=== PATIENT | female | born 1960 | race Caucasian/White ===

== ENCOUNTER 2018-02-11 10:03 | Emergency (ER) | payer MEDICAID ==
[~2018-02-11] VITALS: Ht 167.6 cm; Wt 60.5 kg
[~2018-02-11 10:03] MED LIST: ALBU18HF2 INH; HYDR-569 PO
[2018-02-11 10:35] VITALS: BP 165/82
== END 2018-02-11 13:53 | disposition home or self-care (01) ==
LOC: ER 10:03
DX: S96.911A Strain of unspecified muscle and tendon at ankle and foot level, right foot, initial encounter (principal); I10 Essential (primary) hypertension; E03.9 Hypothyroidism, unspecified; F17.200 Nicotine dependence, unspecified, uncomplicated; F15.10 Other stimulant abuse, uncomplicated; W17.89XA Other fall from one level to another, initial encounter; Y93.89 Activity, other specified; Y92.89 Other specified places as the place of occurrence of the external cause; Y99.8 Other external cause status
CPT/HCPCS: 73600; 73630; 99284; L4360

== ENCOUNTER 2018-04-22 10:54 | Emergency (ER) | payer OTHER, MEDICARE, MEDICAID ==
[~2018-04-22] VITALS: Ht 167.6 cm; Wt 58.2 kg
[2018-04-22 12:49] LABS: BASOPHILS % (AUTO) 0.3 % (0-1); EOSINOPHILS # (AUTO) 0.1 X10'3 (0-0.9); EOSINOPHILS % (AUTO) 1.4 % (0-6); HEMATOCRIT 40.8 % (35.0-45.0); HEMOGLOBIN 14.1 g/dl (12.0-16.0); LYMPHOCYTES # (AUTO) 1.9 X10'3 (1.1-4.8); LYMPHOCYTES % (AUTO) 30.4 % (21-51); MEAN CORPUSCULAR HEMOGLOBIN 32.9 PG (27.0-31.0); MEAN CORPUSCULAR HGB CONC 34.7 % (33.0-36.5); MEAN CORPUSCULAR VOLUME 94.8 FL (78-98); MEAN PLATELET VOLUME 9.6 FL (7.4-10.4); MONOCYTES # (AUTO) 0.4 X10'3 (0-0.9); MONOCYTES % (AUTO) 6.1 % (2-12); NEUTROPHILS # (AUTO) 3.9 X10'3 (1.8-7.7); NEUTROPHILS % (AUTO) 61.8 % (42-75); PLATELET COUNT 199 X10'3 (140-440); RED CELL DISTRIBUTION WIDTH 13.8 % (11.5-14.5); WHITE BLOOD COUNT 6.4 X10'3 (4.5-11.0)
[2018-04-22 13:05] LABS: ALANINE AMINOTRANSFERASE 24 U/L (12-78); ALBUMIN 4.2 G/DL (3.4-5.0); ALBUMIN/GLOBULIN RATIO 1.3 (1.1-1.5); ALKALINE PHOSPHATASE 70 IU/L (46-116); ANION GAP 3 (8-16); ASPARTATE AMINO TRANSFERASE 17 U/L (10-37); BILIRUBIN,TOTAL 0.3 MG/DL (0.1-1.0); BLOOD UREA NITROGEN 15 MG/DL (7-18); CALCIUM 9.6 MG/DL (8.5-10.1); CHLORIDE 104 MMOL/L (99-107); GLUCOSE 114 MG/DL (70-104); POTASSIUM 3.9 MMOL/L (3.5-5.1); SODIUM 140 MMOL/L (135-145); TOTAL CARBON DIOXIDE 32.8 MMOL/L (24-32); TOTAL PROTEIN 7.5 G/DL (6.4-8.2)
[2018-04-22 13:15] LABS: BUN/CREATININE RATIO 14.6 (6.6-38.0); CREATININE 1.03 MG/DL (0.40-0.90); eGFR 55 ML/MIN
[2018-04-22] MEDS ORDERED: iohexol 300mg/ml 100ml inj. ONE (13:17)
[2018-04-22] MEDS ORDERED: HYDROcodone/acetaminophen 10/325mg tab PO ONE (14:50)
[2018-04-22] MEDS ORDERED: ibuprofen 200mg tablet PO ONE (14:50)
[2018-04-22 15:03] VITALS: BP 176/104
[2018-04-22] MEDS ORDERED: HYDR-565 PO (15:14)
[2018-04-22] MEDS ORDERED: mag hydrox/Alum hydrox/simeth 30ml oral suspension PO ONE (15:15)
[2018-04-22] MEDS ORDERED: LIDOcaine Viscous 15ml cup PO ONE (15:15)
== END 2018-04-22 15:25 | disposition home or self-care (01) ==
LOC: ER 10:54
DX: S09.90XA Unspecified injury of head, initial encounter (principal); S19.9XXA Unspecified injury of neck, initial encounter; K21.9 Gastro-esophageal reflux disease without esophagitis; I10 Essential (primary) hypertension; E03.9 Hypothyroidism, unspecified; F15.90 Other stimulant use, unspecified, uncomplicated; F17.200 Nicotine dependence, unspecified, uncomplicated; Z88.8 Allergy status to other drugs, medicaments and biological substances; Z88.0 Allergy status to penicillin; Z88.6 Allergy status to analgesic agent; Z90.710 Acquired absence of both cervix and uterus; Z98.890 Other specified postprocedural states; V49.9XXA Car occupant (driver) (passenger) injured in unspecified traffic accident, initial encounter; Y93.89 Activity, other specified; Y92.89 Other specified places as the place of occurrence of the external cause; Y99.8 Other external cause status
CPT/HCPCS: 36415; 70491; 80053; 85025; 99285; J7030; Q9967

== ENCOUNTER 2018-12-31 11:38 | Emergency (ER) | payer MEDICAID, MEDICARE ==
[~2018-12-31] VITALS: Ht 167.6 cm; Wt 61.4 kg
[~2018-12-31 11:38] MED LIST changes: +HYDR-4383 PO; -HYDR-569 PO
--- NOTE | 2018-12-31 13:04 | NUR ---
CALLED MOTHER WHEN WE COULD NOT FIND THE PT. MOTHER STATES SHE SMOKES AND COULD BE OUT SIDE. WE FOUND HER FATHER IN THE WAITING ROOM WHO STATED SHE WAS IN X-RAY . X-RAY STATED THEY DID NOT HAVE THE PT. ANY MORE. RADIOLOGIST LOOKED AT THE FILM THAT WAS TAKEN WHILE IN THE WAITING ROOM, AND STATED HE SEES A SMALL PNEUOMOTHORAX. STILL LOOKING FOR THE PT.
[2018-12-31] MEDS ORDERED: morphine 4 MG/ML inj SYRINge IV ONE ×2 (13:15→15:15)
[2018-12-31] MEDS ORDERED: normal saline 1000ML IV soln IVB ONE (13:15)
[2018-12-31] MEDS ORDERED: ondansetron/PF 4mg/2ml inj IV ONE (13:15)
[2018-12-31 14:12] LABS: BASOPHILS % (AUTO) 0.2 % (0-1); EOSINOPHILS % (AUTO) 0.3 % (0-6); HEMATOCRIT 36.7 % (35.0-45.0); HEMOGLOBIN 12.5 g/dl (12.0-16.0); LYMPHOCYTES % (AUTO) 13.8 % (21-51); MEAN CORPUSCULAR HEMOGLOBIN 32.1 PG (27.0-31.0); MEAN CORPUSCULAR HGB CONC 33.9 g/dL (33.0-36.5); MEAN CORPUSCULAR VOLUME 94.7 FL (78-98); MEAN PLATELET VOLUME 9.5 FL (7.4-10.4); MONOCYTES # (AUTO) 0.7 X10'3 (0-0.9); MONOCYTES % (AUTO) 9.2 % (2-12); NEUTROPHILS # (AUTO) 5.5 X10'3 (1.8-7.7); NEUTROPHILS % (AUTO) 76.5 % (42-75); PLATELET COUNT 142 X10'3 (140-440); RED BLOOD COUNT 3.88 X10'6 (4.20-5.60); WHITE BLOOD COUNT 7.1 X10'3 (4.5-11.0)
[2018-12-31 14:25] LABS: PARTIAL THROMBOPLASTIN TIME 32 SECONDS (22-32)
[2018-12-31] MEDS ORDERED: iohexol 300 MG/1 ML 50ml polymer ONE ×2 (14:25)
[2018-12-31 14:26] LABS: ALANINE AMINOTRANSFERASE 17 U/L (12-78); ALBUMIN 3.5 G/DL (3.4-5.0); ALBUMIN/GLOBULIN RATIO 1.1 (1.1-1.5); ALKALINE PHOSPHATASE 67 IU/L (46-116); ANION GAP 9 (8-16); ASPARTATE AMINO TRANSFERASE 15 U/L (10-37); BILIRUBIN,TOTAL 0.4 MG/DL (0.1-1.0); BLOOD UREA NITROGEN 13 MG/DL (7-18); BUN/CREATININE RATIO 20.3 (6.6-38.0); CALCIUM 8.6 MG/DL (8.5-10.1); CHLORIDE 103 MMOL/L (99-107); CREATININE 0.64 MG/DL (0.40-0.90); GLUCOSE 113 MG/DL (70-104); POTASSIUM 3.3 MMOL/L (3.5-5.1); SODIUM 137 MMOL/L (135-145); TOTAL CARBON DIOXIDE 24.9 MMOL/L (24-32); TOTAL PROTEIN 6.6 G/DL (6.4-8.2); eGFR > 90 ML/MIN
[2018-12-31] MEDS ORDERED: OXYC-145 PO (16:51)
[2018-12-31 17:05] VITALS: BP 162/82
== END 2018-12-31 17:06 | disposition home or self-care (01) ==
LOC: ER 11:38
DX: S22.42XA Multiple fractures of ribs, left side, initial encounter for closed fracture (principal); J93.9 Pneumothorax, unspecified; J94.2 Hemothorax; I10 Essential (primary) hypertension; K21.9 Gastro-esophageal reflux disease without esophagitis; E03.9 Hypothyroidism, unspecified; F17.200 Nicotine dependence, unspecified, uncomplicated; F15.90 Other stimulant use, unspecified, uncomplicated; Z90.49 Acquired absence of other specified parts of digestive tract; Z90.710 Acquired absence of both cervix and uterus; Z98.890 Other specified postprocedural states; Z88.0 Allergy status to penicillin; Z88.8 Allergy status to other drugs, medicaments and biological substances; Z79.899 Other long term (current) drug therapy; W01.0XXA Fall on same level from slipping, tripping and stumbling without subsequent striking against object, initial encounter; Y93.89 Activity, other specified; Y92.89 Other specified places as the place of occurrence of the external cause; Y99.8 Other external cause status
CPT/HCPCS: 36415; 71046; 71260; 74176; 80053; 85025; 85610; 85730; 96374; 96375; 96376; 99284; J2270; J2405; Q9967; J7030

== ENCOUNTER 2019-01-13 09:40 | Emergency (ER) | payer MEDICARE ==
[~2019-01-13] VITALS: Ht 167.6 cm; Wt 63.2 kg
[~2019-01-13 09:40] MED LIST changes: +OXYC-145 PO
--- NOTE | 2019-01-13 12:05 | NUR ---
PATIENT INFORMED THAT SHE WILL NEED ADMISSION FOR FURTHER TREATMENT OF FX RIBS. PATIENT FULLY DRESSED AND REQUESTING TO GO OUTSIDE AND SMOKE A CIGARETTE. STATES SHE WOULD RATHER GO HOME AND RETURN FOR ADMISSION. PATIENT SPEAKING WITH ER MD ABOUT PLANS, STATING SHE NEEDS TO RETURN HER MOM'S CAR AND THEN COME BACK. PATIENT ASKED FOR PAIN MED PRESCRIPTION AND WAS INFORMED BY ER MD THAT PATIENT WILL BE ABLE TO GET PAIN MEDS ON HER RETURN TO ER.
--- NOTE | 2019-01-13 12:10 | NUR ---
XR TECH AT THE BEDSIDE. PATIENT GETTING DRESSED FOR DC. REFUSED XRAY EXAM AND BRISKLY WALKED OUT OF ROOM, STATING THAT SHE IS LEAVING AND HAS BEEN TREATED POORLY. STEADY GAIT WITH BRISK WALKING AND NO SIGNS OF DIFFICULTY MOVING OR BREATHING. DEPARTED FROM ER PRIOR TO SIGNING DC PAPERWORK, IN STABLE CONDITION.
[2019-01-13 12:32] VITALS: BP 119/71
[2019-01-14] MEDS ORDERED: ESCI20TA38 PO (11:07)
[2019-01-14] MEDS ORDERED: LEVO175T2 PO (11:07)
[2019-01-14] MEDS ORDERED: VALS160T30 PO (11:07)
[2019-01-14] MEDS ORDERED: RISP1TAB3 PO (11:07)
== END 2019-01-13 12:36 | disposition home or self-care (01) ==
LOC: ER 09:40
DX: J90 Pleural effusion, not elsewhere classified (principal); I10 Essential (primary) hypertension; K21.9 Gastro-esophageal reflux disease without esophagitis; F17.200 Nicotine dependence, unspecified, uncomplicated; F15.90 Other stimulant use, unspecified, uncomplicated; E03.9 Hypothyroidism, unspecified; Z90.710 Acquired absence of both cervix and uterus; Z88.0 Allergy status to penicillin; Z88.8 Allergy status to other drugs, medicaments and biological substances
CPT/HCPCS: 71046; 99283

== ENCOUNTER 2024-08-19 12:17 | Inpatient (IN) | payer MEDICARE, MEDICAID ==
[~2024-08-19] VITALS: Ht 167.6 cm; Wt 72.0 kg
[~2024-08-19 12:17] MED LIST changes: -ALBU18HF2 INH; +ESCI20TA39 PO; -HYDR-4383 PO; +LACT1CAP26 PO; +LEVO100T9 PO; +LEVO750T68 PO; +RISP-31 PO; +SYN0.088T PO; +VALS160T30 PO
[2024-08-19] MEDS: LORazepam 2 mg/ml vial IV ONE (13:22)
[2024-08-19 13:29] LABS: BASOPHILS % (AUTO) 0.2 % (0-1); EOSINOPHILS % (AUTO) 0 % (0-6); HEMOGLOBIN 13.7 g/dl (12.0-16.0); LYMPHOCYTES # (AUTO) 1.3 X10'3 (1.1-4.8); LYMPHOCYTES % (AUTO) 12.7 % (21-51); MEAN CORPUSCULAR HEMOGLOBIN 37.2 PG (27.0-31.0); MEAN CORPUSCULAR VOLUME 106.1 FL (78-98); MEAN PLATELET VOLUME 10.6 FL (7.4-10.4); MONOCYTES # (AUTO) 1.2 X10'3 (0-0.9); MONOCYTES % (AUTO) 11.8 % (2-12); NEUTROPHILS # (AUTO) 7.4 X10'3 (1.8-7.7); NEUTROPHILS % (AUTO) 75.3 % (42-75); PLATELET COUNT 85 X10'3 (140-440); RED BLOOD COUNT 3.67 X10'6 (4.20-5.60); RED CELL DISTRIBUTION WIDTH 13.7 % (11.5-14.5); WHITE BLOOD COUNT 9.9 X10'3 (4.5-11.0)
[2024-08-19 13:51] LABS: APTT 25 SECONDS (22-32); PROTHROMBIN TIME 10.1 SECONDS (9.0-12.0)
[2024-08-19 13:54] LABS: ALANINE AMINOTRANSFERASE 154 U/L (12-78); ALBUMIN 2.7 G/DL (3.4-5.0); ALBUMIN/GLOBULIN RATIO 0.8 (1.1-1.5); ALKALINE PHOSPHATASE 76 IU/L (46-116); ANION GAP 16 (8-16); ASPARTATE AMINO TRANSFERASE 312 U/L (10-37); BILIRUBIN,TOTAL 1.9 MG/DL (0.1-1.0); BLOOD UREA NITROGEN 39 MG/DL (7-18); BUN/CREATININE RATIO 39.4 (10.0-20.0); CALCIUM 7.9 MG/DL (8.5-10.1); CHLORIDE 96 MMOL/L (99-107); CREATININE 0.99 MG/DL (0.40-0.90); GLUCOSE 86 MG/DL (70-104); SODIUM 131 MMOL/L (135-145); TOTAL CARBON DIOXIDE 19.3 MMOL/L (24-32); TOTAL PROTEIN 5.9 G/DL (6.4-8.2); eCRCL 54 ML/MIN; eGFR 57 ML/MIN
[2024-08-19 13:56] LABS: PLATELET ESTIMATE DECREASED
[2024-08-19 13:57] LABS: LARGE PLATELETS FEW
[2024-08-19 14:29] LABS: ETHANOL < 10 MG/DL (<10)
[2024-08-19] MEDS: normal saline 1000ml 1,000 ML IVB ONE ×2 (16:43→16:44)
[2024-08-19 16:47] LABS: BILIRUBIN,URINE MODERATE (Neg); CLARITY,URINE CLOUDY (Clear); GLUCOSE, URINE NEGATIVE (Neg); KETONES,URINE 15 mg/dl (Neg); LEUKOCYTE ESTERASE ,URINE NEGATIVE (Neg); NITRITES, URINE POSITIVE (Neg); OCCULT BLOOD,URINE LARGE (Neg); PROTEIN,URINE 100 mg/dl (Neg)
[2024-08-19 16:53] LABS: UA COLLECTION TYPE FOLEY CATH
[2024-08-19 16:54] LABS: COLOR,URINE DARK YELLOW (Yellow)
[2024-08-19 16:57] LABS: BACTERIA,URINE 4+ /HPF (Neg); FINE GRANULAR CAST 0-3 /LPF (NEGATIVE); RENAL CELLS, URINE FEW /HPF; SQUAMOUS EPITHELIAL CELL,UR FEW /LPF (FEW); TRANSITIONAL EPI CELLS,URINE FEW /HPF; WBC,URINE 0-4 /HPF (0-4)
[2024-08-19] MEDS: CefTRIAXone 2gm/D5W 50ml BAG 50 ML IV STA (17:07)
[2024-08-19 17:54] LABS: URINE AMPHETAMINE SCREEN NEGATIVE (Neg); URINE BARBITUATE SCREEN NEGATIVE (Neg); URINE BENZODIAZEPINES SCREEN NEGATIVE (Neg); URINE CANNABINOID SCREEN NEGATIVE (Neg); URINE COCAINE SCREEN NEGATIVE (Neg); URINE METHADONE SCREEN NEGATIVE (Neg); URINE OPIATE SCREEN NEGATIVE (Neg); URINE PHENCYCLIDINE SCREEN NEGATIVE (Neg)
[2024-08-19] MEDS ORDERED: mag hydrox/Alum hydrox/simeth 30ml oral suspension PO PRN (17:55)
[2024-08-19] MEDS ORDERED: morphine 2 MG/ML inj. syringe IV PRN ×2 (17:55)
[2024-08-19] MEDS ORDERED: ondansetron/PF 4mg/2ml inj IV PRN (17:55)
[2024-08-19] MEDS ORDERED: magnesium sulf-water 4G/100mL 100 ML IV PRN (17:55)
[2024-08-19] MEDS ORDERED: nitroGLYCERIN 0.4mg SUBLingual tab SL PRN ×2 (17:55→18:10)
[2024-08-19] MEDS ORDERED: magnesium hydroxide 30ml (MOM) UD suspension PO PRN (17:55)
[2024-08-19] MEDS ORDERED: LORazepam 2 mg/ml vial IV PRN (17:55)
[2024-08-19] MEDS ORDERED: haloperidol 5mg tablet PO PRN (17:55)
[2024-08-19] MEDS ORDERED: potassium Cl 40MEQ/1/2NS 520ml 520 ML IV PRN (17:55)
[2024-08-19] MEDS ORDERED: aminophylline 250mg/10ml inj. IV PRN (17:55)
[2024-08-19] MEDS ORDERED: potassium Cl 20 mEq SR tablet PO PRN (17:55)
[2024-08-19] MEDS ORDERED: HYDROcodone/acetaminophen 5mg/325mg tablet PO PRN (17:55)
[2024-08-19] MEDS ORDERED: haloperidol lactate 5mg/ml inj IM PRN (17:55)
[2024-08-19] MEDS ORDERED: acetaminophen 325mg tablet PO PRN ×2 (17:55)
[2024-08-19] MEDS ORDERED: metoprolol tartrate 1mg/ml inj IV PRN (17:55)
[2024-08-19] MEDS ORDERED: magnesium sulf-water 2g/50mL 50 ML IV PRN (17:55)
[2024-08-19] MEDS: thiamine 100mg/ml 2ml inj. IV ONE (18:05)
[2024-08-19] MEDS: pantoprazole 40 MG vial IV STA (18:05)
[2024-08-19] MEDS: docusate sod 100mg capsule PO SCH (19:06)
[2024-08-19] MEDS: K and/or MAG REPLACEMENT MC SCH (19:06)
[2024-08-19] MEDS: PERFLUTREN PROTEIN-A MICROSPHR (Optison) 0.22 MG/ML 3ML VIAL IV ONE (19:06)
[2024-08-19] MEDS: normal saline 1000ml 1,000 ML IV SCH (19:22)
[2024-08-19 19:38] LABS: CREATINE KINASE 10186 U/L (26-192)
[2024-08-19] MEDS: folic acid 1mg/0.2ml inj IV SCH (19:55)
[2024-08-19] MEDS: thiamine 100mg/ml 2ml inj. IV SCH (20:00)
[2024-08-19 22:31] LABS: ABG BASE EXCESS -6.8 mmol/L (-2.0-3.0); ABG HCO3 18.1 mmol/L (21.0-28.0); ABG PH (T) 7.343 (7.350-7.450); ABG PO2 (T) 94.8 mmHg (83.0-108.0); ALLEN'S TEST POSITIVE; FCOHb 0.8 % (0.5-1.5); FLOW 2 L/min; FMetHb 0.3 % (0.0-1.5); FO2Hb 95.9 % (94.0-98.0); MODE NASAL CANNULA; PATIENT TEMPERATURE 36.6; TOTAL HEMOGLOBIN 12.8 G/dl (12.0-16.0)
[2024-08-20] VITALS (16 sets, daily range): BP systolic 107–139; BP diastolic 53–77; PULSE 67–91; RESP 5–26; TEMP 96.9–98.1; O2SAT 93–99
[2024-08-20] MEDS ORDERED: LEVO175T7 PO (00:35)
[2024-08-20 03:35] LABS: BASOPHILS % (AUTO) 0.2 % (0-1); EOSINOPHILS % (AUTO) 0.1 % (0-6); LYMPHOCYTES # (AUTO) 0.9 X10'3 (1.1-4.8); PLATELET COUNT 63 X10'3 (140-440)
[2024-08-20 03:37] LABS: HEMATOCRIT 31.1 % (35.0-45.0); HEMOGLOBIN 10.7 g/dl (12.0-16.0); LYMPHOCYTES % (AUTO) 14.1 % (21-51); MEAN CORPUSCULAR HEMOGLOBIN 36.4 PG (27.0-31.0); MEAN CORPUSCULAR HGB CONC 34.4 g/dL (33.0-36.5); MEAN CORPUSCULAR VOLUME 105.6 FL (78-98); MEAN PLATELET VOLUME 10.5 FL (7.4-10.4); MONOCYTES # (AUTO) 0.9 X10'3 (0-0.9); NEUTROPHILS # (AUTO) 4.8 X10'3 (1.8-7.7); NEUTROPHILS % (AUTO) 71.6 % (42-75); RED BLOOD COUNT 2.95 X10'6 (4.20-5.60); RED CELL DISTRIBUTION WIDTH 13.5 % (11.5-14.5); WHITE BLOOD COUNT 6.7 X10'3 (4.5-11.0)
[2024-08-20 03:52] LABS: ALANINE AMINOTRANSFERASE 121 U/L (12-78); ALBUMIN/GLOBULIN RATIO 0.8 (1.1-1.5); ALKALINE PHOSPHATASE 57 IU/L (46-116); ANION GAP 14 (8-16); ASPARTATE AMINO TRANSFERASE 228 U/L (10-37); BLOOD UREA NITROGEN 25 MG/DL (7-18); CALCIUM 6.4 MG/DL (8.5-10.1); CHLORIDE 106 MMOL/L (99-107); CREATININE 0.51 MG/DL (0.40-0.90); GLUCOSE 74 MG/DL (70-104); MAGNESIUM 1.9 MG/DL (1.5-2.4); SODIUM 138 MMOL/L (135-145); TOTAL CARBON DIOXIDE 18.4 MMOL/L (24-32); TOTAL PROTEIN 4.4 G/DL (6.4-8.2); eCRCL 106 ML/MIN; eGFR > 90 ML/MIN
[2024-08-20] MEDS: potassium Cl 20 mEq SR tablet PO PRN (04:31)
[2024-08-20] MEDS: regadenoson 0.4mg/5ml syringe IV PRN (09:36)
[2024-08-20] MEDS: CefTRIAXone 2gm/D5W 50ml BAG 50 ML IV SCH (10:44)
[2024-08-20] MEDS: multivitamins, therapeutics tablet PO SCH (10:47)
[2024-08-20] MEDS: midodrine 5mg tablet PO PRN (10:48)
[2024-08-20] MEDS ORDERED: LIDOcaine 2% Viscous 15ml cup ONE (14:50)
[2024-08-20] MEDS ORDERED: simethicone 40mg/0.6ml oral drops 30ml ONE (15:20)
[2024-08-20] MEDS ORDERED: MIDAZolam 1 MG/ML 5ML VIAL ONE (15:35)
[2024-08-20] MEDS ORDERED: fentaNYL/PF 50MCG/1 ML 2ML syringe ONE (15:35)
[2024-08-20] MEDS: HYDROcodone/acetaminophen 10/325mg tab PO PRN (23:49)
[2024-08-21] VITALS (8 sets, daily range): BP systolic 108–157; BP diastolic 55–83; PULSE 72–89; RESP 16–26; TEMP 97–98; O2SAT 88–99
[2024-08-21 06:44] LABS: WHITE BLOOD COUNT 5.5 X10'3 (4.5-11.0)
[2024-08-21 06:46] LABS: BASOPHILS % (AUTO) 0.2 % (0-1); EOSINOPHILS % (AUTO) 0.6 % (0-6); HEMATOCRIT 34.6 % (35.0-45.0); HEMOGLOBIN 11.9 g/dl (12.0-16.0); LYMPHOCYTES # (AUTO) 1.4 X10'3 (1.1-4.8); MEAN CORPUSCULAR HEMOGLOBIN 36.3 PG (27.0-31.0); MEAN CORPUSCULAR HGB CONC 34.3 g/dL (33.0-36.5); MEAN CORPUSCULAR VOLUME 105.7 FL (78-98); MEAN PLATELET VOLUME 10.5 FL (7.4-10.4); MONOCYTES % (AUTO) 18.1 % (2-12); NEUTROPHILS # (AUTO) 3.1 X10'3 (1.8-7.7); NEUTROPHILS % (AUTO) 56.1 % (42-75); PLATELET COUNT 71 X10'3 (140-440); RED BLOOD COUNT 3.27 X10'6 (4.20-5.60); RED CELL DISTRIBUTION WIDTH 13.6 % (11.5-14.5)
[2024-08-21 06:56] LABS: ALANINE AMINOTRANSFERASE 143 U/L (12-78); ALBUMIN 2.3 G/DL (3.4-5.0); ALBUMIN/GLOBULIN RATIO 0.8 (1.1-1.5); ALKALINE PHOSPHATASE 70 IU/L (46-116); ANION GAP 9 (8-16); ASPARTATE AMINO TRANSFERASE 222 U/L (10-37); BILIRUBIN,TOTAL 0.8 MG/DL (0.1-1.0); BLOOD UREA NITROGEN 14 MG/DL (7-18); BUN/CREATININE RATIO 29.2 (10.0-20.0); CHLORIDE 106 MMOL/L (99-107); CREATININE 0.48 MG/DL (0.40-0.90); GLUCOSE 111 MG/DL (70-104); MAGNESIUM 2.9 MG/DL (1.5-2.4); POTASSIUM 4.6 MMOL/L (3.5-5.1); SODIUM 136 MMOL/L (135-145); TOTAL CARBON DIOXIDE 21.4 MMOL/L (24-32); TOTAL PROTEIN 5.3 G/DL (6.4-8.2); eCRCL 112 ML/MIN; eGFR > 90 ML/MIN
[2024-08-21 07:08] LABS: CALCIUM 7.7 MG/DL (8.5-10.1)
[2024-08-21] MEDS: levoTHYROXINE 175mcg tablet PO SCH (15:40)
[2024-08-21 18:25] LABS: CREATINE KINASE 3038 U/L (26-192)
[2024-08-21] MEDS: risperiDONE 0.5mg tablet PO SCH (20:00)
[2024-08-21] MEDS: ipratropium/albuterol 3ml nebule NEB PRN (20:08)
[2024-08-21] MEDS: Melatonin 3mg tablet PO PRN (20:29)
[2024-08-21] MEDS: LORazepam 1 MG tablet PO PRN (20:29)
[2024-08-21] MEDS: guaiFENesin ER 600mg tablet PO SCH (20:29)
[2024-08-22] VITALS (9 sets, daily range): BP systolic 116–158; BP diastolic 57–85; PULSE 64–98; RESP 12–24; TEMP 96.8–98.7; O2SAT 88–100
[2024-08-22 07:12] LABS: HEMOGLOBIN 12.2 g/dl (12.0-16.0); NEUTROPHILS # (AUTO) 3.1 X10'3 (1.8-7.7); NEUTROPHILS % (AUTO) 57.3 % (42-75); PLATELET COUNT 88 X10'3 (140-440)
[2024-08-22 07:15] LABS: BASOPHILS % (AUTO) 0.1 % (0-1); EOSINOPHILS % (AUTO) 0.6 % (0-6); HEMATOCRIT 34.6 % (35.0-45.0); LYMPHOCYTES # (AUTO) 1.3 X10'3 (1.1-4.8); LYMPHOCYTES % (AUTO) 23.7 % (21-51); MEAN CORPUSCULAR HEMOGLOBIN 36.6 PG (27.0-31.0); MEAN CORPUSCULAR HGB CONC 35.2 g/dL (33.0-36.5); MEAN CORPUSCULAR VOLUME 104.2 FL (78-98); MEAN PLATELET VOLUME 10.3 FL (7.4-10.4); MONOCYTES % (AUTO) 18.3 % (2-12); RED BLOOD COUNT 3.32 X10'6 (4.20-5.60); RED CELL DISTRIBUTION WIDTH 13.2 % (11.5-14.5); WHITE BLOOD COUNT 5.4 X10'3 (4.5-11.0)
[2024-08-22 07:43] LABS: ALANINE AMINOTRANSFERASE 138 U/L (12-78); ALBUMIN 2.4 G/DL (3.4-5.0); ALBUMIN/GLOBULIN RATIO 0.8 (1.1-1.5); ALKALINE PHOSPHATASE 68 IU/L (46-116); ANION GAP 8 (8-16); ASPARTATE AMINO TRANSFERASE 153 U/L (10-37); BILIRUBIN,TOTAL 0.8 MG/DL (0.1-1.0); BLOOD UREA NITROGEN 6 MG/DL (7-18); CALCIUM 7.4 MG/DL (8.5-10.1); CHLORIDE 102 MMOL/L (99-107); GLUCOSE 115 MG/DL (70-104); MAGNESIUM 1.8 MG/DL (1.5-2.4); POTASSIUM 3.6 MMOL/L (3.5-5.1); SODIUM 137 MMOL/L (135-145); TOTAL CARBON DIOXIDE 26.9 MMOL/L (24-32); TOTAL PROTEIN 5.3 G/DL (6.4-8.2); eCRCL 108 ML/MIN; eGFR > 90 ML/MIN
[2024-08-22] MEDS: ESCITALOPRAM 10 mg tablet 10 MG TABLET PO SCH (07:54)
[2024-08-22] MEDS: losartan 50mg tablet PO SCH (07:54)
[2024-08-22 08:58] LABS: GIANT PLATELET FEW; PLATELET ESTIMATE DECREASED
[2024-08-22 08:59] LABS: LARGE PLATELETS FEW
[2024-08-22] MEDS: normal saline 1000ml 1,000 ML IV SCH (20:33)
[2024-08-23] VITALS (9 sets, daily range): BP systolic 113–144; BP diastolic 56–70; PULSE 65–84; RESP 11–19; TEMP 97–97.8; O2SAT 93–98
[2024-08-23 06:35] LABS: HEMOGLOBIN 11.5 g/dl (12.0-16.0); MEAN PLATELET VOLUME 9.9 FL (7.4-10.4); NEUTROPHILS # (AUTO) 2.3 X10'3 (1.8-7.7); WHITE BLOOD COUNT 4.3 X10'3 (4.5-11.0)
[2024-08-23 06:38] LABS: BASOPHILS % (AUTO) 0.3 % (0-1); EOSINOPHILS % (AUTO) 0.3 % (0-6); HEMATOCRIT 32.2 % (35.0-45.0); LYMPHOCYTES # (AUTO) 1.1 X10'3 (1.1-4.8); LYMPHOCYTES % (AUTO) 26.3 % (21-51); MEAN CORPUSCULAR HEMOGLOBIN 37.4 PG (27.0-31.0); MEAN CORPUSCULAR HGB CONC 35.7 g/dL (33.0-36.5); MEAN CORPUSCULAR VOLUME 104.6 FL (78-98); MONOCYTES # (AUTO) 0.8 X10'3 (0-0.9); NEUTROPHILS % (AUTO) 54.1 % (42-75); PLATELET COUNT 105 X10'3 (140-440); RED BLOOD COUNT 3.08 X10'6 (4.20-5.60); RED CELL DISTRIBUTION WIDTH 13.4 % (11.5-14.5)
[2024-08-23 07:02] LABS: ALANINE AMINOTRANSFERASE 134 U/L (12-78); ALBUMIN 2.2 G/DL (3.4-5.0); ALBUMIN/GLOBULIN RATIO 0.8 (1.1-1.5); ALKALINE PHOSPHATASE 64 IU/L (46-116); ANION GAP 8 (8-16); ASPARTATE AMINO TRANSFERASE 102 U/L (10-37); BILIRUBIN,TOTAL 0.7 MG/DL (0.1-1.0); BLOOD UREA NITROGEN 6 MG/DL (7-18); BUN/CREATININE RATIO 9.4 (10.0-20.0); CALCIUM 7.8 MG/DL (8.5-10.1); CHLORIDE 102 MMOL/L (99-107); CREATININE 0.64 MG/DL (0.40-0.90); GLUCOSE 121 MG/DL (70-104); MAGNESIUM 1.8 MG/DL (1.5-2.4); POTASSIUM 3.2 MMOL/L (3.5-5.1); SODIUM 139 MMOL/L (135-145); TOTAL CARBON DIOXIDE 28.9 MMOL/L (24-32); eCRCL 84 ML/MIN; eGFR > 90 ML/MIN
[2024-08-23] MEDS: thiamine 100mg tablet PO SCH (07:49)
[2024-08-23] MEDS: potassium Cl 20 mEq SR tablet PO PRN (08:17)
[2024-08-23 16:21] LABS: CREATINE KINASE 642 U/L (26-192)
[2024-08-24 02:00] VITALS: BP 151/83; PULSE 76; RESP 14; TEMP 97.3; O2SAT 97
[2024-08-24 06:00] VITALS: BP 175/81; PULSE 74; RESP 17; TEMP 99.4; O2SAT 96
[2024-08-24 07:17] LABS: BASOPHILS % (AUTO) 0.3 % (0-1); EOSINOPHILS % (AUTO) 0.6 % (0-6); HEMATOCRIT 36.1 % (35.0-45.0); HEMOGLOBIN 12.6 g/dl (12.0-16.0); LYMPHOCYTES # (AUTO) 1.1 X10'3 (1.1-4.8); LYMPHOCYTES % (AUTO) 25.4 % (21-51); MEAN CORPUSCULAR HEMOGLOBIN 36.5 PG (27.0-31.0); MEAN CORPUSCULAR HGB CONC 34.8 g/dL (33.0-36.5); MEAN PLATELET VOLUME 10.4 FL (7.4-10.4); MONOCYTES % (AUTO) 21.2 % (2-12); NEUTROPHILS # (AUTO) 2.4 X10'3 (1.8-7.7); NEUTROPHILS % (AUTO) 52.5 % (42-75); PLATELET COUNT 151 X10'3 (140-440); RED BLOOD COUNT 3.44 X10'6 (4.20-5.60); RED CELL DISTRIBUTION WIDTH 13.7 % (11.5-14.5); WHITE BLOOD COUNT 4.5 X10'3 (4.5-11.0)
[2024-08-24] MEDS: folic acid 1mg tablet PO SCH (07:55)
[2024-08-24 08:00] VITALS: RESP 17; O2SAT 96
[2024-08-24 08:06] LABS: ALANINE AMINOTRANSFERASE 131 U/L (12-78); ALBUMIN 2.4 G/DL (3.4-5.0); ALBUMIN/GLOBULIN RATIO 0.8 (1.1-1.5); ALKALINE PHOSPHATASE 68 IU/L (46-116); ANION GAP 8 (8-16); ASPARTATE AMINO TRANSFERASE 70 U/L (10-37); BILIRUBIN,TOTAL 0.6 MG/DL (0.1-1.0); BLOOD UREA NITROGEN 6 MG/DL (7-18); BUN/CREATININE RATIO 11.3 (10.0-20.0); CALCIUM 8.3 MG/DL (8.5-10.1); CHLORIDE 104 MMOL/L (99-107); CREATININE 0.53 MG/DL (0.40-0.90); GLUCOSE 138 MG/DL (70-104); POTASSIUM 3.6 MMOL/L (3.5-5.1); SODIUM 139 MMOL/L (135-145); TOTAL CARBON DIOXIDE 26.9 MMOL/L (24-32); TOTAL PROTEIN 5.5 G/DL (6.4-8.2); eCRCL 102 ML/MIN; eGFR > 90 ML/MIN
[2024-08-24 08:13] VITALS: PULSE 74; PULSE 80; RESP 16; RESP 18; O2SAT 88
[2024-08-24 08:25] LABS: PLATELET ESTIMATE NORMAL; TOTAL CELLS COUNTED 100
[2024-08-24 11:00] VITALS: BP 136/71; PULSE 76; RESP 15; TEMP 97.5; O2SAT 95
[2024-08-24 13:02] VITALS: RESP 18
== END 2024-08-24 15:20 | disposition home health service (06) | DRG 377 ==
LOC: ER 12:18 → ED HOLD 18:05 → PCU 3S 08-20 12:20
PROVIDERS: ADMIT Nurse Practitioner Family; ATTEND Nurse Practitioner Family
PROC: 4A02XM4 Measurement of Cardiac Total Activity, External Approach (ICD-10-PCS; 2024-08-19)
PROC: 3E033HZ Introduction of Radioactive Substance into Peripheral Vein, Percutaneous Approach (ICD-10-PCS; 2024-08-19)
PROC: 0DB98ZX Excision of Duodenum, Via Natural or Artificial Opening Endoscopic, Diagnostic (ICD-10-PCS; principal; 2024-08-20)
PROC: 0DB78ZX Excision of Stomach, Pylorus, Via Natural or Artificial Opening Endoscopic, Diagnostic (ICD-10-PCS; 2024-08-20)
DX: K29.51 Unspecified chronic gastritis with bleeding (principal); G93.41 Metabolic encephalopathy; I21.4 Non-ST elevation (NSTEMI) myocardial infarction; N39.0 Urinary tract infection, site not specified; F10.239 Alcohol dependence with withdrawal, unspecified; M62.82 Rhabdomyolysis; E03.9 Hypothyroidism, unspecified; I10 Essential (primary) hypertension; F32.A Depression, unspecified; F41.9 Anxiety disorder, unspecified; I95.9 Hypotension, unspecified; K21.9 Gastro-esophageal reflux disease without esophagitis; E87.6 Hypokalemia; K70.10 Alcoholic hepatitis without ascites; F15.90 Other stimulant use, unspecified, uncomplicated; Z88.0 Allergy status to penicillin; Z90.710 Acquired absence of both cervix and uterus; Z88.8 Allergy status to other drugs, medicaments and biological substances; Z90.49 Acquired absence of other specified parts of digestive tract
CPT/HCPCS: 36415; 36600; 43239; 70450; 71045; 73060; 73502; 78452; 80053; 80305; 80320; 81001; 82550; 82803; 83605; 83735; 83880; 84145; 84443; 84484; 85007; 85008; 85018; 85025; 85610; 85730; 87040; 87077; 87081; 87088; 87186; 88305; 88313; 88342; 93005; 93017; 93306; 94640; 94760; 97116; 97161; 97530; 97535; 99152; 99291; A4353; A4615; A4620; A5200; A6213; A6250; A6258; A6449; A9500; C1758; G0378; J0696; J2060; J2250; J2470; J2785; J3010; J3411; J3490; J7030

== ENCOUNTER 2024-08-29 09:04 | Inpatient (IN) | payer MEDICARE, MEDICAID ==
[~2024-08-29] VITALS: Ht 167.6 cm; Wt 73.6 kg
[~2024-08-29 09:04] MED LIST changes: -LACT1CAP26 PO; -LEVO100T9 PO; +LEVO175T7 PO; -LEVO750T68 PO; -OXYC-145 PO; -SYN0.088T PO
[2024-08-29 10:02] LABS: ALBUMIN 2.8 G/DL (3.4-5.0); ANION GAP 12 (8-16); BLOOD UREA NITROGEN 9 MG/DL (7-18); BUN/CREATININE RATIO 14.5 (10.0-20.0); CALCIUM 8.8 MG/DL (8.5-10.1); CHLORIDE 103 MMOL/L (99-107); CREATININE 0.62 MG/DL (0.40-0.90); POTASSIUM 3.4 MMOL/L (3.5-5.1); PRO BRAIN NATRIURETIC PEPTIDE 3058 PG/ML (0-125); SODIUM 137 MMOL/L (135-145); eCRCL 87 ML/MIN; eGFR > 90 ML/MIN
[2024-08-29 10:09] LABS: GLUCOSE 124 MG/DL (70-104)
[2024-08-29] MEDS: HYDROcodone/acetaminophen 5mg/325mg tablet PO ONE (10:24)
[2024-08-29 11:29] LABS: BASOPHILS % (AUTO) 0.8 % (0-1); EOSINOPHILS % (AUTO) 0.2 % (0-6); HEMATOCRIT 39.1 % (35.0-45.0); HEMOGLOBIN 13.5 g/dl (12.0-16.0); LYMPHOCYTES % (AUTO) 16.8 % (21-51); MEAN CORPUSCULAR HEMOGLOBIN 35.7 PG (27.0-31.0); MEAN CORPUSCULAR HGB CONC 34.6 g/dL (33.0-36.5); MEAN CORPUSCULAR VOLUME 103.2 FL (78-98); MEAN PLATELET VOLUME 9.6 FL (7.4-10.4); MONOCYTES # (AUTO) 0.7 X10'3 (0-0.9); NEUTROPHILS # (AUTO) 4.4 X10'3 (1.8-7.7); NEUTROPHILS % (AUTO) 71.2 % (42-75); PLATELET COUNT 314 X10'3 (140-440); RED BLOOD COUNT 3.79 X10'6 (4.20-5.60); RED CELL DISTRIBUTION WIDTH 13.4 % (11.5-14.5); WHITE BLOOD COUNT 6.2 X10'3 (4.5-11.0)
[2024-08-29] MEDS ORDERED: magnesium Cl slow-release 64mg tablet PO PRN (13:15)
[2024-08-29] MEDS ORDERED: magnesium hydroxide 30ml (MOM) UD suspension PO PRN (13:15)
[2024-08-29] MEDS ORDERED: mag hydrox/Alum hydrox/simeth 30ml oral suspension PO PRN (13:15)
[2024-08-29] MEDS ORDERED: potassium Cl 20 mEq SR tablet PO PRN ×2 (13:15)
[2024-08-29] MEDS ORDERED: magnesium sulf-water 4G/100mL 100 ML IV PRN (13:15)
[2024-08-29] MEDS ORDERED: magnesium sulf-water 2g/50mL 50 ML IV PRN (13:15)
[2024-08-29] MEDS ORDERED: potassium Cl 40MEQ/1/2NS 520ml 520 ML IV PRN (13:15)
[2024-08-29] MEDS ORDERED: ondansetron/PF 4mg/2ml inj IV PRN (13:15)
[2024-08-29] MEDS: acetaminophen 325mg tablet PO PRN (15:12)
[2024-08-29 17:23] LABS: BILIRUBIN,URINE MODERATE (Neg); CLARITY,URINE CLOUDY (Clear); GLUCOSE, URINE NEGATIVE (Neg); KETONES,URINE 15 mg/dl (Neg); LEUKOCYTE ESTERASE ,URINE NEGATIVE (Neg); NITRITES, URINE NEGATIVE (Neg); OCCULT BLOOD,URINE MODERATE (Neg); PH,URINE 5.5 (4.8-8.0); PROTEIN,URINE TRACE mg/dl (Neg)
[2024-08-29 17:35] LABS: UA COLLECTION TYPE CLN CATCH MIDSTREAM
[2024-08-29 17:39] LABS: COLOR,URINE DARK YELLOW (Yellow)
[2024-08-29 17:40] LABS: BACTERIA,URINE 2+ /HPF (Neg); MUCUS STRANDS MODERATE /LPF (Neg); SQUAMOUS EPITHELIAL CELL,UR MANY /LPF (FEW); TRANSITIONAL EPI CELLS,URINE FEW /HPF; WBC,URINE 0-4 /HPF (0-4)
[2024-08-29] MEDS: heparin, porcine 5000 units/ml vial SQ SCH (19:40)
[2024-08-29] MEDS: docusate sod 100mg capsule PO SCH (19:41)
[2024-08-29] MEDS: risperiDONE 0.5mg tablet PO ONE (19:41)
[2024-08-29] MEDS: K and/or MAG REPLACEMENT MC SCH (19:44)
[2024-08-30 02:58] LABS: BASOPHILS # (AUTO) 0.1 X10'3 (0-0.2); MEAN PLATELET VOLUME 9.3 FL (7.4-10.4)
[2024-08-30 02:59] LABS: BASOPHILS % (AUTO) 0.9 % (0-1); EOSINOPHILS % (AUTO) 0.4 % (0-6); HEMOGLOBIN 13.2 g/dl (12.0-16.0); LYMPHOCYTES # (AUTO) 1.6 X10'3 (1.1-4.8); MEAN CORPUSCULAR HGB CONC 34.7 g/dL (33.0-36.5); MEAN CORPUSCULAR VOLUME 103.5 FL (78-98); MONOCYTES # (AUTO) 0.8 X10'3 (0-0.9); NEUTROPHILS # (AUTO) 4.2 X10'3 (1.8-7.7); NEUTROPHILS % (AUTO) 62.7 % (42-75); PLATELET COUNT 301 X10'3 (140-440); RED BLOOD COUNT 3.67 X10'6 (4.20-5.60); RED CELL DISTRIBUTION WIDTH 13.5 % (11.5-14.5); WHITE BLOOD COUNT 6.8 X10'3 (4.5-11.0)
[2024-08-30 03:14] LABS: ALANINE AMINOTRANSFERASE 87 U/L (12-78); ALBUMIN 2.7 G/DL (3.4-5.0); ALBUMIN/GLOBULIN RATIO 0.8 (1.1-1.5); ALKALINE PHOSPHATASE 83 IU/L (46-116); ANION GAP 7 (8-16); ASPARTATE AMINO TRANSFERASE 50 U/L (10-37); BILIRUBIN,TOTAL 0.7 MG/DL (0.1-1.0); BLOOD UREA NITROGEN 12 MG/DL (7-18); BUN/CREATININE RATIO 16.7 (10.0-20.0); CALCIUM 8.6 MG/DL (8.5-10.1); CHLORIDE 103 MMOL/L (99-107); CREATININE 0.72 MG/DL (0.40-0.90); GLUCOSE 101 MG/DL (70-104); MAGNESIUM 1.8 MG/DL (1.5-2.4); POTASSIUM 3.6 MMOL/L (3.5-5.1); SODIUM 137 MMOL/L (135-145); TOTAL CARBON DIOXIDE 27.1 MMOL/L (24-32); eCRCL 75 ML/MIN; eGFR 82 ML/MIN
[2024-08-30 05:26] VITALS: TEMP 98
[2024-08-30] MEDS: levoTHYROXINE 175mcg tablet PO SCH (07:48)
[2024-08-30] MEDS: losartan 50mg tablet PO SCH (08:46)
[2024-08-30] MEDS: ESCITALOPRAM 10 mg tablet 10 MG TABLET PO SCH (08:47)
[2024-08-30] MEDS ORDERED: ASPI81TA52 PO (10:53)
[2024-08-30 15:17] VITALS: BP 122/69; PULSE 74; RESP 16; O2SAT 96
== END 2024-08-30 16:00 | disposition home or self-care (01) | DRG 282 ==
LOC: ER 09:04 → ED HOLD 13:19
PROVIDERS: ADMIT Internal Medicine; ATTEND Nurse Practitioner Family
DX: I21.4 Non-ST elevation (NSTEMI) myocardial infarction (principal); I10 Essential (primary) hypertension; E03.9 Hypothyroidism, unspecified; F32.A Depression, unspecified; R25.1 Tremor, unspecified; I25.2 Old myocardial infarction; Z88.8 Allergy status to other drugs, medicaments and biological substances; Z88.0 Allergy status to penicillin; Z91.81 History of falling
CPT/HCPCS: 36415; 71045; 80048; 80053; 81001; 83735; 83880; 84484; 85025; 93005; G0378; J1644

== ENCOUNTER 2025-02-11 13:09 | Inpatient (IN) | payer MEDICARE, MEDICAID ==
[~2025-02-11] VITALS: Ht 167.6 cm; Wt 62.0 kg
[~2025-02-11 13:09] MED LIST changes: +ASPI81TA52 PO
--- NOTE | 2025-02-11 13:36 | ELECTROCARDIOGRAPH REPORT ---
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 Morgan Osborne Measurements Intervals Mina Rate: 67 P: 87 MA: 188 QRS: 68 QRSD: 111 T: 64 QT: 396 QTc: 418 Interpretive Statements Sinus rhythm Left atrial enlargement Nonspecific T abnrm, anterolateral leads Electronically Signed On 02-14-2025 18:35:[address] Morgan Osborne Please click the below link to view image of tracing.
[2025-02-11 13:38] LABS: BASOPHILS # (AUTO) 0.1 X10'3 (0-0.2); BASOPHILS % (AUTO) 1.1 % (0-1); EOSINOPHILS % (AUTO) 0.2 % (0-6); HEMATOCRIT 32.4 % (35.0-45.0); HEMOGLOBIN 11.3 g/dl (12.0-16.0); LYMPHOCYTES # (AUTO) 1.6 X10'3 (1.1-4.8); LYMPHOCYTES % (AUTO) 17.7 % (21-51); MEAN CORPUSCULAR HEMOGLOBIN 37.3 PG (27.0-31.0); MEAN CORPUSCULAR HGB CONC 34.8 g/dL (33.0-36.5); MEAN CORPUSCULAR VOLUME 107.1 FL (78-98); MONOCYTES # (AUTO) 0.3 X10'3 (0-0.9); MONOCYTES % (AUTO) 3.5 % (2-12); NEUTROPHILS % (AUTO) 77.5 % (42-75); PLATELET COUNT 113 X10'3 (140-440); RED BLOOD COUNT 3.02 X10'6 (4.20-5.60)
[2025-02-11 13:54] LABS: ALANINE AMINOTRANSFERASE 42 U/L (12-78); ALBUMIN 2.6 G/DL (3.4-5.0); ALBUMIN/GLOBULIN RATIO 0.7 (1.1-1.5); ALKALINE PHOSPHATASE 142 IU/L (46-116); ANION GAP 12 (8-16); ASPARTATE AMINO TRANSFERASE 49 U/L (10-37); BILIRUBIN,TOTAL 2.5 MG/DL (0.1-1.0); BLOOD UREA NITROGEN 15 MG/DL (7-18); BUN/CREATININE RATIO 16.1 (10.0-20.0); CALCIUM 8.4 MG/DL (8.5-10.1); CHLORIDE 95 MMOL/L (99-107); CREATININE 0.93 MG/DL (0.40-0.90); GLUCOSE 86 MG/DL (70-104); LIPASE 68 U/L (16-77); POTASSIUM 3.6 MMOL/L (3.5-5.1); SODIUM 128 MMOL/L (135-145); TOTAL CARBON DIOXIDE 21.2 MMOL/L (24-32); TOTAL PROTEIN 6.3 G/DL (6.4-8.2); eCRCL 58 ML/MIN; eGFR 61 ML/MIN
--- NOTE | 2025-02-11 15:31 | Physician Documentation ---
History of Present Illness ~ Chief Complaint: Weakness Stated Complaint: POSS GI BLEED Time Seen by MD: 14:14 Primary Medical Doctor: Blanca FREEDMAN Mode of Arrival: EMS HPI 64-year-old female presenting with shortness of breath and generalized weakness that has been ongoing for the past 2-3 weeks. The patient reports that she has a chronic heavy drinker and drinks about 12 beers daily. She quit about two weeks ago. She has gradually grown weaker and more short of breath when she tri es to move around. Additionally she reports that about a week ago she had some very dark tarry stools. Denies any fever, chills or any other associated symptoms. Medication Reconciliation Allergies: Coded Allergies: LANE Inhibitors (Verified Allergy, Intermediate, 04/22/18) Penicillins (Verified Allergy, Intermediate, hives, nausea, 04/22/18) Scheduled Aspirin (Aspirin EC), 1 TAB PO DAILY Escitalopram Oxalate (Escitalopram Oxalate), 1 TAB PO DAILY, (Reported) Levothyroxine Sodium (Levothyroxine Sodium), 1 TAB PO DAILY, (Reported) Risperidone (Risperidone), 1 TAB PO BID, (Reported) Valsartan (Valsartan), 1 TAB PO DAILY, (Reported) Past Medical History Past Medical History: Hypertension, GERD, Hypothyroidism, *PSYCH*, Anxiety, Depression Past Surgical History: appendectomy, hysterectomy, orthopedic surgeries Patient History: FH: lung cancer MOTHER (smoking history) Alcohol Use: Occasionally Drug Use: methamphetamine Lives In: Home Review of Systems All Other Systems at this time: Reviewed and Negative Physical Exam Vital Signs: Temperature: 98.2, Source: Temporal, Heart Rate: 60, Respiratory Rate: 14, BP: 119/66, Pulse Oximetry: 99, Weight: 62.000 Oxygen Flow Rate: 0 Physical Exam I have reviewed the triage vitals. CONST: Appears fatigued, pale, in no acute distress HENT: Head Atraumatic EYES: Pupils are equal, round and reactive to light. Normal conjunctiva NECK: Normal range of motion. Supple. CARDIO: Normal rate and regular rhythm. No murmurs, rubs, or gallops. S1, S2. PULM/CHEST: No respiratory distress. Lungs clear to auscultation. No wheeze ABD: Soft and nontender. Nondistended. Bowel sounds normal. No guarding. : Exam deferred MSK: No edema. No deformity. NEURO: Alert and oriented to person, place and time. Moving all extremities SKIN: Pale PSYCH: Depressed mood, normal affect, normal eye contact. Progress Results/Orders Results/Orders Orders - KAREEM MEYERS MD Urinalysis, Cult If Indicated (02/11/25 13:17) Culture Blood (02/11/25 15:02) Chest,Single View (02/11/25 15:38) Page Hospitalist (02/11/25 16:46) Fill Out Med Reconciliation (02/11/25 16:46) Normal Saline 1000ml (Sodium Chloride 10 (02/11/25 16:50) Completed Orders - KAREEM MEYERS MD Cbc/Diff (02/11/25 13:17) BMP (02/11/25 13:17) Lipase (02/11/25 13:17) CMP (02/11/25 13:17) Electrocardiogram (02/11/25 ) Lacticsepsis (02/11/25 15:02) Hs Troponin I W Calculations (02/11/25 15:02) PTT (02/11/25 15:27) Pt Inr (02/11/25 15:27) MG (02/11/25 15:30) Chest,Single View (02/11/25 15:38) Occult Bld Stool (02/11/25 15:39) Medications Received in ER Medications (Trade) Dose Ordered Sig/Bobby Route PRN Reason Start Time Stop Time Status Last Admin Dose Admin Sodium Chloride 1,000 ml @ 1,000 mls/hr ONCE ONCE IV 02/11/25 16:50 02/11/25 17:49 02/11/25 17:15 1,000 MLS/HR Vital Signs 02/11/25 02/11/25 02/11/25 02/11/25 13:12 13:40 14:16 16:23 Temp 98.2 Pulse 83 60 56 Resp 18 18 14 14 B/P (MAP) 118/84 119/66 (83) 110/59 (76) Pulse Ox 99 99 99 O2 Flow Rate 0 0 0 Laboratory Tests Test 02/11/25 13:30 02/11/25 15:15 02/11/25 15:30 White Blood Count 9.0 Red Blood Count 3.02 L Hemoglobin 11.3 L Hematocrit 32.4 L Mean Corpuscular Volume 107.1 H Mean Corpuscular Hemoglobin 37.3 H Mean Corpuscular Hemoglobin Concent 34.8 Red Cell Distribution Width 16.0 H Platelet Count 113 L Mean Platelet Volume 11.0 H Neutrophils (%) (Auto) 77.5 H Lymphocytes (%) (Auto) 17.7 L Monocytes (%) (Auto) 3.5 Eosinophils (%) (Auto) 0.2 Basophils (%) (Auto) 1.1 H Neutrophils # (Auto) 7.0 Lymphocytes # (Auto) 1.6 Monocytes # (Auto) 0.3 Eosinophils # (Auto) 0.0 Basophils # (Auto) 0.1 CBC Comment Platelet Estimate Decreased Large Platelets Few Red Blood Cell Morphology Perf Basophilic Stippling Macrocytosis 1+ Prothrombin Time 10.8 INR International Normalized Ratio 1.1 Activated Partial Thromboplast Time 28 Coagulation Comments Sodium Level 128 L Potassium Level 3.6 Chloride Level 95 L Carbon Dioxide Level 21.2 L Anion Gap 12 Blood Urea Nitrogen 15 Creatinine 0.93 H Estimated GFR/1.73 m2 61 BUN/Creatinine Ratio 16.1 Glucose Level 86 Calcium Level 8.4 L Magnesium Level 2.1 Total Bilirubin 2.5 H Aspartate Amino Transf (AST/SGOT) 49 H Alanine Aminotransferase (ALT/SGPT) 42 Alkaline Phosphatase 142 H Total Protein 6.3 L Albumin 2.6 L Globulin 3.7 Albumin/Globulin Ratio 0.7 L Lipase 68 Chemistry Comments Lactic Acid Level 1.1 Troponin I High Sensitivity 6 Stool Occult Blood Negative EKG/XRAY/CT/US/VASC/MRI EKG : Additional Comment EKG as interpreted by ED MD indicating normal sinus rhythm at a rate of 98 beats per minute, normal axis, no ischemia Chest X-Ray : Additional Comments CHEST RADIOGRAPH Indication: weakness Technique: Single frontal view of the chest was obtained COMPARISON: DI CHEST,SINGLE VIEW on DOS: 08/29/24, DI CHEST,SINGLE VIEW on DOS: 08/19/24 FINDINGS: Lines and Tubes: None Lungs: Clear Pleura: No effusion. No pneumothorax. Cardiomediastinal contours: Unremarkable Bones: Unremarkable IMPRESSION: 1. No acute disease. Medical Decision Making Additional Information 64-year-old female presenting with generalized weak has a secondary to dehydration and acute renal failure. The patient has quit drinking through two weeks ago but has had some decreased p.o. intake over the past couple of weeks. Her creatinine is elevated above her baseline by 0.3 points. Additionally the patient is hyponatremic likely secondary to her dehydration. Patient had complaints of some black tarry stools however on exam none were visualized and her stool occult blood test is negative. Patient was given 2 L of IV normal sa line. Given these findings it is prudent to have the patient admitted for further treatment and care. Departure Disposition: ADMITTED INPATIENT Admission Level of Care: Med/Surg with Tele Impression: Primary Impression: Dehydration Additional Impression: Acute renal failure Referrals: NO PRIMARY CARE PROVIDER (PCP) Signature Scribe Signature: 1 Attestation: 1 KAREEM MEYERS MD Feb 11, 2025 15:31
[2025-02-11 15:52] LABS: LARGE PLATELETS FEW; PLATELET ESTIMATE DECREASED
--- NOTE | 2025-02-11 16:03 | RADIOLOGY REPORT ---
CHEST RADIOGRAPH Indication: weakness Technique: Single frontal view of the chest was obtained COMPARISON: DI CHEST,SINGLE VIEW on DOS: 08/29/24, DI CHEST,SINGLE VIEW on DOS: 08/19/24 FINDINGS: Lines and Tubes: None Lungs: Clear Pleura: No effusion. No pneumothorax. Cardiomediastinal contours: Unremarkable Bones: Unremarkable IMPRESSION: 1. No acute disease.
[2025-02-11 16:13] LABS: APTT 28 SECONDS (22-32); INR 1.1 INR; PROTHROMBIN TIME 10.8 SECONDS (9.0-12.0)
[2025-02-11] MEDS: normal saline 1000ml 1,000 ML IV ONE (17:15)
[2025-02-11 17:19] LABS: OCCULT BLOOD STOOL NEGATIVE (Neg)
[2025-02-11] MEDS ORDERED: magnesium sulf-water 4G/100mL 100 ML IV PRN (17:40)
[2025-02-11] MEDS ORDERED: magnesium hydroxide 30ml (MOM) UD suspension PO PRN (17:40)
[2025-02-11] MEDS ORDERED: magnesium Cl slow-release 64mg tablet PO PRN (17:40)
[2025-02-11] MEDS ORDERED: morphine 2 MG/ML inj. syringe IV PRN (17:40)
[2025-02-11] MEDS ORDERED: magnesium sulf-water 2g/50mL 50 ML IV PRN (17:40)
[2025-02-11] MEDS ORDERED: bisacodyl 10mg suppository rectal RC PRN (17:40)
[2025-02-11] MEDS ORDERED: ondansetron/PF 4mg/2ml inj IV PRN (17:40)
[2025-02-11] MEDS ORDERED: potassium Cl 20 mEq SR tablet PO PRN (17:40)
[2025-02-11] MEDS ORDERED: acetaminophen 325mg tablet PO PRN ×2 (17:40)
[2025-02-11] MEDS ORDERED: potassium Cl 40MEQ/1/2NS 520ml 520 ML IV PRN (17:40)
[2025-02-11] MEDS ORDERED: LORazepam 1 MG tablet PO PRN (17:45)
[2025-02-11] MEDS ORDERED: LORazepam 2 mg/ml vial IV PRN (17:45)
[2025-02-11] MEDS: normal saline 1000ml 1,000 ML IV SCH (18:04)
[2025-02-11] MEDS: nicotine 14mg patch - 24hr TD SCH (18:04)
[2025-02-11 19:37] LABS: BILIRUBIN,URINE MODERATE (Neg); CLARITY,URINE CLOUDY (Clear); COLOR,URINE AMBER (Yellow); GLUCOSE, URINE NEGATIVE (Neg); KETONES,URINE 15 mg/dl (Neg); LEUKOCYTE ESTERASE ,URINE TRACE (Neg); NITRITES, URINE POSITIVE (Neg); OCCULT BLOOD,URINE TRACE-INTACT (Neg); PH,URINE 5.5 (4.8-8.0); PROTEIN,URINE TRACE mg/dl (Neg); UROBILINOGEN,URINE >=8.0 E.U/dL (0.2-1.0)
[2025-02-11 19:52] LABS: URINE AMPHETAMINE SCREEN NEGATIVE (Neg); URINE BARBITUATE SCREEN NEGATIVE (Neg); URINE BENZODIAZEPINES SCREEN NEGATIVE (Neg); URINE CANNABINOID SCREEN NEGATIVE (Neg); URINE COCAINE SCREEN NEGATIVE (Neg); URINE METHADONE SCREEN NEGATIVE (Neg); URINE OPIATE SCREEN NEGATIVE (Neg); URINE PHENCYCLIDINE SCREEN NEGATIVE (Neg)
[2025-02-11 20:25] LABS: UA COLLECTION TYPE CLN CATCH MIDSTREAM
[2025-02-11 20:26] LABS: SQUAMOUS EPITHELIAL CELL,UR MODERATE /LPF (FEW)
[2025-02-11 20:27] LABS: MUCUS STRANDS FEW /LPF (Neg)
[2025-02-11 20:28] LABS: BACTERIA,URINE 4+ /HPF (Neg); RBC,URINE 0-2 /HPF (0-2)
--- NOTE | 2025-02-11 20:42 | HISTORY AND PHYSICAL ---
History & Physical Providers to CC ~ History of Present Illness Reason for Admit\Complaint: Feeling weak History of Present Illness Patient is 64-year-old female with history of Alcohol Depression hypothyroid HTN NSTEMI. She came to ER with her concern regarding week she lives in mobile trailer home. Patient is chronic alcoholic and smoke half pack of cigarettes per day denies use of any recreational drugs. As per patient since last two weeks she is not drinking beer. She follows with Queenie Canales in [facility]. Patient denies using any medication at home. Today she came with her concern regarding shortness of breaths and generalized weakness which is going on since couple of weeks.The patient reports that she has a chronic heavy drinker and drinks about 12 beers daily. She quit about two weeks ago. She has gradually grown weaker and more short of breath when she tries to move around. Additionally she reports that about a week ago she had some very dark tarry stools. Rectal examination done in ER showed guaiac-negative as per ER provider. Denies any fever, chills or any other associated symptoms. I evaluated the patient in ER she looks very dehydrated butter renal function is normal elevated LFT total bilirubin 2.5 AST 49 ALT 42 alkaline phosphatase 142. Normal lipase. Sodium 128. Hospitalist service contacted for admission and further management Allergies: Coded Allergies: LANE Inhibitors (Verified Allergy, Intermediate, 04/22/18) Penicillins (Verified Allergy, Intermediate, hives, nausea, 04/22/18) Home Medications Home Medications Active Reported Levothyroxine Sodium 175 Mcg Tablet 1 Tab PO DAILY Escitalopram Oxalate 20 Mg Tablet 1 Tab PO DAILY 30 Days Risperidone 1 Mg Tablet 1 Tab PO BID 30 Days Valsartan 160 Mg Tablet 1 Tab PO DAILY 30 Days Past Medical History Past Medical History Alcohol Depression hypothyroid HTN NSTEMI Past Surgical History Surgical History Comment h/o Tibia Fibula fracture Family History Family History: FH: lung cancer MOTHER (smoking history) Past Social History Social History Comment Patient is chronic alcoholic and smoke half pack of cigarettes per day denies use of any recreational drugs. As per patient since last two weeks she is not drinking beer. She follows with Queenie Canales in [facility]. Patient denies using any medication at home ROS ROS Review of system as mentioned above in HPI rest of the review of system unremarkable Exam Vitals: Vital Signs Date Time Temp Pulse Resp B/P (MAP) Pulse Ox O2 Delivery O2 Flow Rate FiO2 02/11/25 19:31 60 18 112/71 (85) 100 02/11/25 16:23 0 02/11/25 13:12 98.2 General: General-patient not in any acute distress, alert awake oriented, chronically ill-appearing, appear older than stated age HEENT-atraumatic normocephalic, neck supple without elevated JVD, no thyromegaly or carotid bruit. No lymphadenopathy bilaterally. Eyes-no icterus or pallor seen in eyes Chest-decreased breath sounds to auscultation bilaterally, breathing nonlabored no tachypnea, no wheezing, no crepitation, no crackles. Heart-S1-S2 normal, regular heart rate no murmur Abdomen bowel sounds positive on auscultation, soft nondistended nontender no guarding, no rigidity Skin no active skin rash Neurology-grossly intact, nonfocal alert awake oriented Extremity- no pedal edema able to move all 4 extremities Psychiatry - patient is not confused or agitated cooperated during physical examination Diagnostic Data Last Recorded Lab Results: 02/11/25 1330 02/11/25 1330 Diagnostic Data: Laboratory Tests Test 02/11/25 13:30 Prothrombin Time 10.8 SECONDS (9.0-12.0) INR International Normalized Ratio 1.1 INR Activated Partial Thromboplast Time 28 SECONDS (22-32) Coagulation Comments Additional Plan Patient is 64-year-old female with history of Alcohol Depression hypothyroid HTN NSTEMI. She came to ER with her concern regarding weekness # Patient is chronic alcoholic and smoke half pack of cigarettes- ordered alcohol withdrawal protocol and nicotine patch, social work program coordinator consultation requested # generalized weakness - PT evaluation needed per weekness # dark tarry stools. Rectal examination done in ER showed guaiac-negative as per ER provider. We will continue to monitor hemoglobin and hematocrit # Hyponatremia, thrombocytopenia, abnormal LFT secondary to alcoholism # Code status discussed with the patient patient wishes to stay full code. Further management depending on response to treatment I will continue to follow patient in AM Date of Service: Feb 11, 2025 Billing Provider: LACY CLEMENTE MD Common Visit Codes: [id number] INP/OBS CARE (HIGH) Secondary Visit Codes: [id number] CARE PLAN 30 MINUTES LACY CLEMENTE MD Feb 11, 2025 20:42
[2025-02-11 21:10] VITALS: BP 126/64; PULSE 61; RESP 15; TEMP 98.2; O2SAT 100
[2025-02-11 21:22] LABS: CREATINE KINASE 13 U/L (26-192)
[2025-02-11 22:00] VITALS: BP 126/64; PULSE 61; RESP 15; TEMP 98.2; O2SAT 100
[2025-02-12] VITALS (8 sets, daily range): BP systolic 104–119; BP diastolic 65–71; PULSE 58–75; RESP 16–20; TEMP 97.7–97.9; O2SAT 97–100
[2025-02-12] MEDS: CefTRIAXone/D5W-Rocephin 1gm 50 ML IV ONE (00:49)
[2025-02-12] MEDS: HYDROcodone/acetaminophen 5mg/325mg tablet PO PRN (02:05)
[2025-02-12 05:26] LABS: BASOPHILS % (AUTO) 0.6 % (0-1); EOSINOPHILS % (AUTO) 0.2 % (0-6); HEMATOCRIT 27.9 % (35.0-45.0); HEMOGLOBIN 9.7 g/dl (12.0-16.0); LYMPHOCYTES # (AUTO) 1.7 X10'3 (1.1-4.8); LYMPHOCYTES % (AUTO) 24.5 % (21-51); MEAN CORPUSCULAR HEMOGLOBIN 37.3 PG (27.0-31.0); MEAN CORPUSCULAR HGB CONC 34.6 g/dL (33.0-36.5); MEAN CORPUSCULAR VOLUME 107.8 FL (78-98); MONOCYTES # (AUTO) 0.3 X10'3 (0-0.9); MONOCYTES % (AUTO) 3.9 % (2-12); NEUTROPHILS # (AUTO) 4.9 X10'3 (1.8-7.7); NEUTROPHILS % (AUTO) 70.8 % (42-75); PLATELET COUNT 83 X10'3 (140-440); RED BLOOD COUNT 2.59 X10'6 (4.20-5.60); RED CELL DISTRIBUTION WIDTH 16.2 % (11.5-14.5); WHITE BLOOD COUNT 6.9 X10'3 (4.5-11.0)
[2025-02-12 05:39] LABS: ALANINE AMINOTRANSFERASE 33 U/L (12-78); ALBUMIN 2.2 G/DL (3.4-5.0); ALBUMIN/GLOBULIN RATIO 0.8 (1.1-1.5); ALKALINE PHOSPHATASE 117 IU/L (46-116); ANION GAP 12 (8-16); ASPARTATE AMINO TRANSFERASE 38 U/L (10-37); BILIRUBIN,TOTAL 1.7 MG/DL (0.1-1.0); BLOOD UREA NITROGEN 13 MG/DL (7-18); BUN/CREATININE RATIO 14.8 (10.0-20.0); CALCIUM 7.8 MG/DL (8.5-10.1); CHLORIDE 101 MMOL/L (99-107); CREATININE 0.88 MG/DL (0.40-0.90); GLUCOSE 61 MG/DL (70-104); MAGNESIUM 1.9 MG/DL (1.5-2.4); POTASSIUM 3.5 MMOL/L (3.5-5.1); SODIUM 132 MMOL/L (135-145); TOTAL CARBON DIOXIDE 19.4 MMOL/L (24-32); TOTAL PROTEIN 5.1 G/DL (6.4-8.2); eCRCL 61 ML/MIN; eGFR 65 ML/MIN
[2025-02-12 08:57] LABS: ANISOCYTOSIS 1+; LARGE PLATELETS FEW; PLATELET ESTIMATE DECREASED
[2025-02-12] MEDS ORDERED: albuterol 2.5 MG/3 ML nebule NEB PRN (09:55)
--- NOTE | 2025-02-12 19:11 | PROGRESS NOTE ---
Daily Progress Note Providers to CC ~ Antibiotic Timeout Antibiotic Ordered?: Yes Subjective Patient was seen in presence of charge nurse Phyllis and nursing staff today. Patient does not look to me in any acute distress clear lungs no wheezing no labored breathing. Stools are formed no blood noticed in the stools which she passed this morning. Home medication reconciliation done for patient's home med Objective Vital Signs Date Time Temp Pulse Resp B/P (MAP) Pulse Ox O2 Delivery O2 Flow Rate FiO2 02/12/25 18:00 97.8 69 19 113/65 (81) 98 Room Air 02/12/25 10:36 0 21 Result Diagram: 02/12/25 0446 02/12/25 0446 General-patient not in any acute distress, alert awake oriented, chronically ill-appearing, appear older than stated age HEENT-atraumatic normocephalic, neck supple without elevated JVD, no thyromegaly or carotid bruit. No lymphadenopathy bilaterally. Eyes-no icterus or pallor seen in eyes Chest-mildly decreased breath sounds to auscultation bilaterally, breathing nonlabored no tachypnea, no wheezing, no crepitation, no crackles. Heart-S1-S2 normal, regular heart rate no murmur Abdomen bowel sounds positive on auscultation, soft nondistended nontender no guarding, no rigidity Skin no active skin rash Neurology-grossly intact, nonfocal alert awake oriented Extremity- no pedal edema able to move all 4 extremities Psychiatry - patient is not confused or agitated cooperated during physical examination Coagulation Studies Laboratory Tests Test 02/11/25 13:30 Prothrombin Time 10.8 SECONDS (9.0-12.0) INR International Normalized Ratio 1.1 INR Activated Partial Thromboplast Time 28 SECONDS (22-32) Coagulation Comments Problem\Assessment\Plan Patient is 64-year-old female with history of Alcohol Depression hypothyroid HTN NSTEMI. She came to ER with her concern regarding weekness # Patient is chronic alcoholic and smoke half pack of cigarettes- ordered alcohol withdrawal protocol and nicotine patch, social media executive consultation requested # generalized weakness - PT evaluation needed per weekness # dark tarry stools. Rectal examination done in ER showed guaiac-negative as per ER provider. We will continue to monitor hemoglobin and hematocrit # Hyponatremia, macrocytic anemia, thrombocytopenia, abnormal LFT secondary to alcoholism, we will monitor # drop in hemoglobin and hematocrit due to dilutional effects of fluids, tapered fluids # Code status discussed with the patient patient wishes to stay full code. Further management depending on response to treatment I will continue to follow patient in AM. Patient needs physical therapy evaluation before her discharge. Date of Service: Feb 12, 2025 Billing Provider: LACY CLEMENTE MD Common Visit Codes: [id number] INP/OBS CARE(HIGH) LACY CLEMENTE MD Feb 12, 2025 19:11
[2025-02-12] MEDS: risperiDONE 0.5mg tablet PO SCH (20:19)
[2025-02-12] MEDS: CefTRIAXone/D5W-Rocephin 1gm 50 ML IV SCH (21:49)
[2025-02-13 05:29] LABS: BASOPHILS % (AUTO) 0.6 % (0-1); EOSINOPHILS % (AUTO) 0.2 % (0-6); HEMATOCRIT 26.3 % (35.0-45.0); HEMOGLOBIN 9.2 g/dl (12.0-16.0); LYMPHOCYTES # (AUTO) 1.5 X10'3 (1.1-4.8); MEAN CORPUSCULAR VOLUME 108.6 FL (78-98); MEAN PLATELET VOLUME 10.8 FL (7.4-10.4); MONOCYTES # (AUTO) 0.3 X10'3 (0-0.9); MONOCYTES % (AUTO) 5.1 % (2-12); NEUTROPHILS # (AUTO) 3.4 X10'3 (1.8-7.7); NEUTROPHILS % (AUTO) 65.1 % (42-75); PLATELET COUNT 72 X10'3 (140-440); RED BLOOD COUNT 2.42 X10'6 (4.20-5.60); RED CELL DISTRIBUTION WIDTH 16.8 % (11.5-14.5); WHITE BLOOD COUNT 5.2 X10'3 (4.5-11.0)
[2025-02-13 05:49] LABS: ALANINE AMINOTRANSFERASE 27 U/L (12-78); ALBUMIN 1.9 G/DL (3.4-5.0); ALBUMIN/GLOBULIN RATIO 0.7 (1.1-1.5); ALKALINE PHOSPHATASE 110 IU/L (46-116); ANION GAP 9 (8-16); ASPARTATE AMINO TRANSFERASE 35 U/L (10-37); BILIRUBIN,TOTAL 0.8 MG/DL (0.1-1.0); BLOOD UREA NITROGEN 11 MG/DL (7-18); BUN/CREATININE RATIO 13.3 (10.0-20.0); CALCIUM 7.6 MG/DL (8.5-10.1); CHLORIDE 105 MMOL/L (99-107); CREATININE 0.83 MG/DL (0.40-0.90); GLUCOSE 112 MG/DL (70-104); MAGNESIUM 1.6 MG/DL (1.5-2.4); POTASSIUM 3.1 MMOL/L (3.5-5.1); SODIUM 135 MMOL/L (135-145); TOTAL CARBON DIOXIDE 21.1 MMOL/L (24-32); TOTAL PROTEIN 4.7 G/DL (6.4-8.2); eCRCL 65 ML/MIN; eGFR 69 ML/MIN
[2025-02-13 06:00] VITALS: BP 126/63; PULSE 70; RESP 18; TEMP 96.8; O2SAT 95
[2025-02-13] MEDS: levoTHYROXINE 175mcg tablet PO SCH (07:13)
[2025-02-13 08:00] VITALS: RESP 16; O2SAT 96
[2025-02-13] MEDS: potassium Cl 20 mEq SR tablet PO PRN (08:48)
[2025-02-13] MEDS: ESCITALOPRAM 10 mg tablet 10 MG TABLET PO SCH (08:49)
[2025-02-13] MEDS: losartan 50mg tablet PO SCH (08:49)
[2025-02-13 10:00] VITALS: BP 108/62; PULSE 69; RESP 16; TEMP 97; O2SAT 96
[2025-02-13 10:11] VITALS: PULSE 73; RESP 20; O2SAT 97
[2025-02-13] MEDS: lactose-reduced food (Ensure Enlive) - 237ml bottle PO SCH (13:37)
--- NOTE | 2025-02-13 16:29 | PROGRESS NOTE ---
Daily Progress Note Providers to CC ~ Antibiotic Timeout Antibiotic Ordered?: Yes Subjective Patient was seen in her room she likes to stay on bed physical therapy evaluation done they recommended rehab her labs are improving and she is getting treated for acute UTI. I sent the message to Vashti , correctional casework specialist to search the rehab place for her. Objective Vital Signs Date Time Temp Pulse Resp B/P (MAP) Pulse Ox O2 Delivery O2 Flow Rate FiO2 02/13/25 12:35 20 02/13/25 10:11 73 97 Room Air* 0 21 02/13/25 10:00 97.0 108/62 (77) Result Diagram: 02/13/25 0452 02/13/25 0452 General-patient not in any acute distress, alert awake oriented, chronically ill-appearing, appear older than stated age HEENT-atraumatic normocephalic, neck supple without elevated JVD, no thyromegaly or carotid bruit. No lymphadenopathy bilaterally. Eyes-no icterus or pallor seen in eyes Chest-mildly decreased breath sounds to auscultation bilaterally, breathing nonlabored no tachypnea, no wheezing, no crepitation, no crackles. Heart-S1-S2 normal, regular heart rate no murmur Abdomen bowel sounds positive on auscultation, soft nondistended nontender no guarding, no rigidity Skin no active skin rash Neurology-grossly intact, nonfocal alert awake oriented Extremity- no pedal edema able to move all 4 extremities Psychiatry - patient is not confused or agitated cooperated during physical examination Coagulation Studies Laboratory Tests Test 02/11/25 13:30 Prothrombin Time 10.8 SECONDS (9.0-12.0) INR International Normalized Ratio 1.1 INR Activated Partial Thromboplast Time 28 SECONDS (22-32) Coagulation Comments Problem\Assessment\Plan Patient is 64-year-old female with history of Alcohol Depression hypothyroid HTN NSTEMI. She came to ER with her concern regarding weekness # Patient is chronic alcoholic and smoke half pack of cigarettes- ordered alcohol withdrawal protocol and nicotine patch, social sciences professor consultation requested # generalized weakness - PT evaluation needed per weekness # dark tarry stools. Rectal examination done in ER showed guaiac-negative as per ER provider. We will continue to monitor hemoglobin and hematocrit # Hyponatremia, macrocytic anemia, thrombocytopenia, abnormal LFT secondary to alcoholism, we will monitor # hypokalemia we will do the replacement of potassium as per protocol # drop in hemoglobin and hematocrit due to dilutional effects of fluids, tapered fluids # Code status discussed with the patient patient wishes to stay full code. Further management depending on response to treatment I will continue to follow patient in AM. Patient needs rehab as per physical therapy team I sent the message to Miss Kingston , correctional casework specialist to search the rehab place for her. Date of Service: Feb 13, 2025 Billing Provider: LACY CLEMENTE MD Common Visit Codes: [id number] INP/OBS CARE(HIGH) LACY CLEMENTE MD Feb 13, 2025 16:29
[2025-02-13 18:00] VITALS: BP 97/60; PULSE 72; RESP 15; TEMP 97.2; O2SAT 99
[2025-02-13 22:00] VITALS: BP 117/67; PULSE 70; RESP 15; TEMP 97.2; O2SAT 100
[2025-02-14 01:47] VITALS: BP 100/55; PULSE 69; RESP 20; O2SAT 93
[2025-02-14 06:00] VITALS: BP 129/74; PULSE 70; RESP 15; TEMP 98.6; O2SAT 98
[2025-02-14 06:41] LABS: BASOPHILS % (AUTO) 0.6 % (0-1); EOSINOPHILS % (AUTO) 0.3 % (0-6); HEMATOCRIT 25.6 % (35.0-45.0); HEMOGLOBIN 8.9 g/dl (12.0-16.0); LYMPHOCYTES # (AUTO) 1.7 X10'3 (1.1-4.8); LYMPHOCYTES % (AUTO) 34.6 % (21-51); MEAN CORPUSCULAR HEMOGLOBIN 37.6 PG (27.0-31.0); MEAN CORPUSCULAR HGB CONC 34.7 g/dL (33.0-36.5); MEAN CORPUSCULAR VOLUME 108.4 FL (78-98); MEAN PLATELET VOLUME 10.7 FL (7.4-10.4); MONOCYTES # (AUTO) 0.3 X10'3 (0-0.9); NEUTROPHILS # (AUTO) 2.8 X10'3 (1.8-7.7); NEUTROPHILS % (AUTO) 58.5 % (42-75); PLATELET COUNT 68 X10'3 (140-440); RED BLOOD COUNT 2.36 X10'6 (4.20-5.60); RED CELL DISTRIBUTION WIDTH 16.5 % (11.5-14.5); WHITE BLOOD COUNT 4.8 X10'3 (4.5-11.0)
[2025-02-14 07:03] LABS: ALANINE AMINOTRANSFERASE 29 U/L (12-78); ALBUMIN 1.8 G/DL (3.4-5.0); ALBUMIN/GLOBULIN RATIO 0.6 (1.1-1.5); ALKALINE PHOSPHATASE 109 IU/L (46-116); ANION GAP 10 (8-16); ASPARTATE AMINO TRANSFERASE 42 U/L (10-37); BILIRUBIN,TOTAL 0.6 MG/DL (0.1-1.0); BLOOD UREA NITROGEN 9 MG/DL (7-18); BUN/CREATININE RATIO 10.7 (10.0-20.0); CHLORIDE 108 MMOL/L (99-107); CREATININE 0.84 MG/DL (0.40-0.90); GLUCOSE 120 MG/DL (70-104); POTASSIUM 4.2 MMOL/L (3.5-5.1); SODIUM 139 MMOL/L (135-145); TOTAL CARBON DIOXIDE 21.3 MMOL/L (24-32); eCRCL 64 ML/MIN; eGFR 68 ML/MIN
[2025-02-14 07:31] VITALS: PULSE 68; RESP 16; O2SAT 95
[2025-02-14 10:00] VITALS: BP 107/62; PULSE 72; RESP 13; TEMP 97; O2SAT 96
[2025-02-14 15:20] VITALS: RESP 18
--- NOTE | 2025-02-14 18:09 | DISCHARGE SUMMARY ---
Discharge Summary Providers to CC ~ Discharge Summary Admission Diagnosis: Alcoholic, dehydrated , hyponatremia Hospital Course DATE OF ADMISSION: February 11, 2025 DATE OF DISCHARGE: February 14, 2025 CBC testing done on February 14, 2025 WBC 4.8 hemoglobin 8.9 hematocrit 25.6 platelet count 68. Serum chemistry done on February 14, 2025 sodium 139 potassium 4.2 creatinine 0.84 GFR 68 AST 42 rest of the liver enzymes unremarkable CK 13 lipase 68. Blood culture shows Staphylococcus capitis. Urine culture positive for E coli chest xyay- IMPRESSION: 1. No acute disease. Discharge Diagnosis\\Comment: acute UTI chronic alcoholic and smoke half pack of cigarettes, generalized weakness dark tarry stools guaiac-negative, Hyponatremia, macrocytic anemia, thrombocytopenia, abnormal LFT secondary to alcoholism, past medical history of bipolar/schizoaffective disorder. Operations\\Procedures: None Consultants: None Complications: None Condition on DC: Stable Discharge Summary: As per my admitting history and physical exam" Patient is 64-year-old female w ith history of Alcohol Depression hypothyroid HTN NSTEMI. She came to ER with her concern regarding week she lives in [facility]. Patient is chronic alcoholic and smoke half pack of cigarettes per day denies use of any recreational drugs. As per patient since last two weeks she is not drinking beer. She follows with Queenie Canales , in [facility]. Patient denies using any medication at home. Today she came with her concern regarding shortness of breaths and generalized weakness which is going on since couple of weeks.The patient reports that she has a chronic heavy drinker and drinks about 12 beers daily. She quit about two weeks ago. She has gradually grown weaker and more short of breath when she tries to move around. Additionally she reports that about a week ago she had some very dark tarry stools. Rectal examination done in ER showed guaiac-negative as per ER provider. Denies any fever, chills or any other associated symptoms. I evaluated the patient in ER she looks very dehydrated butter renal function is normal elevated LFT total bilirubin 2.5 AST 49 ALT 42 alkaline phosphatase 142. Normal lipase. Sodium 128. Hospitalist service contacted for admission and further management" During hospitalization patient was treated for # Patient is chronic alcoholic and smoke half pack of cigarettes- ordered alcohol withdrawal protocol and nicotine patch, social science analyst consultation requested # generalized weakness - PT evaluation needed per weekness # dark tarry stools. Rectal examination done in ER showed guaiac-negative as per ER provider. We continued to monitor hemoglobin and hematocrit # Hyponatremia, macrocytic anemia, thrombocytopenia, abnormal LFT secondary to alcoholism, we monitored # hypokalemia- resolved we did the replacement of potassium as per protocol # drop in hemoglobin and hematocrit due to dilutional effects of fluids, tapered fluids Clinical condition was stable throughout the hospitalization she is getting dis charged to [facility] rehab today. Patient is seen and examined on the day of discharge medication reconciliation done for [facility] rehab facilitation facility. Patient did not showed any signs of behavioral issues during hospitalization and clinically stable. General-patient not in any acute distress, alert awake oriented, chronically ill-appearing, appear older than stated age HEENT-atraumatic normocephalic, neck supple without elevated JVD, no thyromegaly or carotid bruit. No lymphadenopathy bilaterally. Eyes-no icterus or pallor seen in eyes Chest-mildly decreased breath sounds to auscultation bilaterally, breathing nonlabored no tachypnea, no wheezing, no crepitation, no crackles. Heart-S1-S2 normal, regular heart rate no murmur Abdomen bowel sounds positive on auscultation, soft nondistended nontender no guarding, no rigidity Skin no active skin rash Neurology-grossly intact, nonfocal alert awake oriented Extremity- no pedal edema able to move all 4 extremities Psychiatry - patient is not confused or agitated cooperated during physical examination *Problems/Diagnosis: (1) Acute UTI Status: Acute (2) Dehydration Status: Acute Total Time Spent on D/C: > 30 Minutes Date of Service: Feb 14, 2025 Billing Provider: LACY CLEMENTE MD Common Visit Codes: 44682-SRB/OBS DISCH DAY >30min LACY CLEMENTE MD Feb 14, 2025 18:07
[2025-02-15] MEDS ORDERED: thiamine 100mg tablet PO SCH (08:00)
[2025-02-16] MEDS ORDERED: folic acid 1mg tablet PO SCH (08:00)
== END 2025-02-14 18:00 | DRG 690 ==
LOC: ER 13:10 → ED HOLD 17:26 → ORTHO 4S 21:25
PROVIDERS: ADMIT Internal Medicine; ATTEND Internal Medicine
DX: N39.0 Urinary tract infection, site not specified (principal); E87.1 Hypo-osmolality and hyponatremia; E44.0 Moderate protein-calorie malnutrition; E86.0 Dehydration; Z68.22 Body mass index [BMI] 22.0-22.9, adult; F17.210 Nicotine dependence, cigarettes, uncomplicated; I10 Essential (primary) hypertension; F10.20 Alcohol dependence, uncomplicated; D69.6 Thrombocytopenia, unspecified; D53.9 Nutritional anemia, unspecified; F41.9 Anxiety disorder, unspecified; F32.A Depression, unspecified; K21.9 Gastro-esophageal reflux disease without esophagitis; E03.9 Hypothyroidism, unspecified; I25.2 Old myocardial infarction; Z88.0 Allergy status to penicillin; Z90.49 Acquired absence of other specified parts of digestive tract; Z90.710 Acquired absence of both cervix and uterus; Z80.1 Family history of malignant neoplasm of trachea, bronchus and lung
CPT/HCPCS: 36415; 71045; 80053; 80305; 81001; 82272; 82550; 83605; 83690; 83735; 84484; 85008; 85025; 85610; 85730; 87040; 87077; 87081; 87088; 87186; 93005; 94640; 94760; 97162; 97530; 99285; G0378; J0696; J7030